=== PATIENT | female | born 1995 | race Caucasian/White ===

== ENCOUNTER 2021-12-21 15:22 | Outpatient (CLI) | payer BC, OTHER | END 2021-12-21 16:59 | disposition home or self-care (01) | LOC: GENOP 15:22 | DX: O36.8130 Decreased fetal movements, third trimester, not applicable or unspecified (principal); O16.3 Unspecified maternal hypertension, third trimester; O99.891 Other specified diseases and conditions complicating pregnancy; O26.853 Spotting complicating pregnancy, third trimester; O99.353 Diseases of the nervous system complicating pregnancy, third trimester; G43.909 Migraine, unspecified, not intractable, without status migrainosus; M54.50 Low back pain, unspecified; Z3A.32 32 weeks gestation of pregnancy | CPT/HCPCS: 59025; 81001 ==

== ENCOUNTER 2022-02-06 20:16 | Inpatient (IN) | payer BC, OTHER ==
[~2022-02-06] VITALS: Ht 167.6 cm; Wt 100.7 kg
[2022-02-07] MEDS ORDERED: PRENATAL VITAM1 EAC5 PO (02:03)
[2022-02-07 02:34] LABS: RED BLOOD COUNT 3.96 M/UL (4.00-5.10); WHITE BLOOD COUNT 14.1 K/UL (4.5-11.0)
[2022-02-07] MEDS ORDERED: IBUPROFEN600 MG PO (18:50)
[2022-02-07] MEDS ORDERED: DOCUSATE SODIU100 MG PO (18:50)
[2022-02-08 02:22] LABS: HEMOGLOBIN 9.4 gm/dl (12.3-15.3)
[2022-02-09] MEDS ORDERED: FERROUS SULFAT325 MG PO (09:06)
== END 2022-02-09 13:43 | disposition home or self-care (01) | DRG 806 ==
LOC: GENOP 20:16 → CDU 02-07 01:53 → OB 02-07 01:53
PROVIDERS: Obstetrics & Gynecology; ADMIT Obstetrics & Gynecology
PROC: 10E0XZZ Delivery of Products of Conception, External Approach (ICD-10-PCS; principal; 2022-02-07)
PROC: 10907ZC Drainage of Amniotic Fluid, Therapeutic from Products of Conception, Via Natural or Artificial Opening (ICD-10-PCS; 2022-02-07)
PROC: 3E033VJ Introduction of Other Hormone into Peripheral Vein, Percutaneous Approach (ICD-10-PCS; 2022-02-07)
PROC: 0HQ9XZZ Repair Perineum Skin, External Approach (ICD-10-PCS; 2022-02-07)
PROC: 10H07YZ Insertion of Other Device into Products of Conception, Via Natural or Artificial Opening (ICD-10-PCS; 2022-02-07)
PROC: 4A1H7CZ Monitoring of Products of Conception, Cardiac Rate, Via Natural or Artificial Opening (ICD-10-PCS; 2022-02-07)
PROC: 10H073Z Insertion of Monitoring Electrode into Products of Conception, Via Natural or Artificial Opening (ICD-10-PCS; 2022-02-07)
DX: O13.4 Gestational [pregnancy-induced] hypertension without significant proteinuria, complicating childbirth (principal); D62 Acute posthemorrhagic anemia; Z37.0 Single live birth; O99.02 Anemia complicating childbirth; Z3A.38 38 weeks gestation of pregnancy; O70.0 First degree perineal laceration during delivery; Z90.49 Acquired absence of other specified parts of digestive tract; Z98.890 Other specified postprocedural states; Z20.822 Contact with and (suspected) exposure to COVID-19; Z82.49 Family history of ischemic heart disease and other diseases of the circulatory system; Z83.3 Family history of diabetes mellitus; Z80.3 Family history of malignant neoplasm of breast
CPT/HCPCS: 81001; 82800; 83518; 85014; 85018; 85025; 90686; 90715; J0595; J2590; J7120; U0002